=== PATIENT | male | born 1990 | race Caucasian/White ===

== ENCOUNTER 2018-05-25 09:01 | Emergency (ER) | payer SELFPAY ==
--- NOTE | 2018-05-25 09:30 | EDM.PDOC ---
ED HPI GENERAL MEDICAL PROBLEM - General Chief Complaint: Upper Extremity Injury/Pain Stated Complaint: POSSIBLE DISLOCATED HIS RT SHOULDER Time Seen by Provider: 05/25/18 09:20 - History of Present Illness INITIAL COMMENTS - FREE TEXT/NARRATIVE: HISTORY AND PHYSICAL: History of present illness: The patient is a healthy 27-year-old male who is a history of her right shoulder dislocation in 2013 which was reduced here in the emergency department and he followed up with a ortho clinic and presents with complaints of right shoulder pain and possible dislocation that occurred last evening when he was punching a punching bag at a bar. The patient says he felt the pain but thinks it might have gotten back into place as the pain is not severe today. He still feels like he has decreased range of motion and wanted to get it checked out. He has no other injuries or complaints and no systemic complaints. He has no neurovascular changes in his right upper extremity and no distal bony pain or weakness. Review of systems: As per history of present illness and below otherwise all systems reviewed and negative. Past medical history: As per history of present illness and as reviewed below otherwise noncontributory. Surgical history: As per history of present illness and as reviewed below otherwise noncontributory. Social history: No reported history of drug or alcohol abuse. Family history: As per history of present illness and as reviewed below otherwise noncontributory. Physical exam: General: Well-developed well-nourished man who is nontoxic and vital signs were noted by me HEENT: Atraumatic, normocephalic, negative for conjunctival pallor or scleral icterus, mucous membranes moist, throat clear, neck supple, nontender, trachea midline. Lungs: Clear to auscultation, breath sounds equal bilaterally, chest nontender. Heart: S1S2, regular rate and rhythm no overt murmurs Abdomen: Soft, nondistended, nontender. NABS. Pelvis: Deferred Genitourinary: Deferred. Rectal: Deferred. Extremities: Atraumatic with full range of motion of all extremities with the exception of the right shoulder. The patient limits range of motion due to discomfort and concern but I'm able to passively range of motion and there is no clinical dislocation. There are no palpable bony deformities of the clavicle humerus elbow forearm wrist or hand on the right. Neurovascular is intact. The legs are, negative for cords or calf pain. Neurovascular unremarkable. Neuro: Awake, alert, oriented. Cranial nerves II through XII unremarkable. Cerebellum unremarkable. Motor and sensory unremarkable throughout. Exam nonfocal. Diagnostics: Right shoulder x-ray Therapeutics: Sling Impression: Right shoulder injury; possible right shoulder dislocation with spontaneous reduction Definitive disposition and diagnosis as appropriate pending reevaluation and review of above. - Related Data Allergies Allergy/AdvReac Type Severity Reaction Status Date / Time No Known Allergies Allergy Verified 05/25/18 09:29 Home Meds: Home Meds . [No Known Home Meds] 09/06/14 [History] Review of Systems - Review of Systems Review Of Systems: ROS reveals no pertinent complaints other than HPI. ED EXAM, GENERAL - Physical Exam Exam: See Below (See dictation) Course - Vital Signs Last Recorded V/S: Last Vital Signs Temp 36.1 C 05/25/18 09:23 Pulse 104 H 05/25/18 09:23 Resp 20 05/25/18 09:23 BP 150/86 H 05/25/18 09:23 Pulse Ox 96 05/25/18 09:23 - Orders/Labs/Meds Orders: Active Orders 24 hr Category Date Time Status DME for Discharge [COMM] Stat Oth 05/25/18 09:27 Ordered Departure - Departure Time of Disposition: 09:54 Disposition: Home, Self-Care 01 Condition: Good Clinical Impression: Right shoulder injury - Discharge Information Instructions: Shoulder Pain Referrals: PCP,None [Primary Care Provider] - Forms: ED Department Discharge Additional Instructions: The following information is given to patients seen in the emergency department who are being discharged to home. This information is to outline your options for follow-up care. We provide all patients seen in our emergency department with a follow-up referral. The need for follow-up, as well as the timing and circumstances, are variable depending upon the specifics of your emergency department visit. If you don't have a primary care physician on staff, we will provide you with a referral. We always advise you to contact your personal physician following an emergency department visit to inform them of the circumstance of the visit and for follow-up with them and/or the need for any referrals to a consulting specialist. The emergency department will also refer you to a specialist when appropriate. This referral assures that you have the opportunity for followup care with a specialist. All of these measure are taken in an effort to provide you with optimal care, which includes your followup. Under all circumstances we always encourage you to contact your private physician who remains a resource for coordinating your care. When calling for followup care, please make the office aware that this follow-up is from your recent emergency room visit. If for any reason you are refused follow-up, please contact the [facility] emergency department at and ask to speak to the emergency department charge nurse. [facility]--Orthopedic clinic Professional Building [address] [place] [phone] Ice to area and use [id number] ibuprofen/Motrin for pain. Wear sling until you're followed up in the orthopedics clinic. Please do not do any excessive activity or overhead activity as this may re-dislocate your shoulder. Return to ER as needed and as discussed - My Orders Last 24 Hours: My Active Orders 05/25/18 09:27 DME for Discharge [COMM] Stat - Assessment/Plan Last 24 Hours: My Active Orders 05/25/18 09:27 DME for Discharge [COMM] Stat
--- NOTE | 2018-05-25 09:50 | CR ---
EXAMINATION: Right shoulder HISTORY: Pain COMPARISON: 09/07/2014 TECHNIQUE: 3 views FINDINGS/IMPRESSION: There is no acute osseous abnormality, dislocation, or fracture. Bone mineraliza tion and joint spaces are preserved.
== END 2018-05-25 10:25 | disposition home or self-care (01) ==
LOC: MW.ED 09:01
DX: S49.91XA Unspecified injury of right shoulder and upper arm, initial encounter (principal); X50.0XXA Overexertion from strenuous movement or load, initial encounter
CPT/HCPCS: 73030-26-RT; 73030-RT; 99283

== ENCOUNTER 2023-01-25 23:23 | Emergency (ER) | payer SELFPAY ==
[2023-01-25] MEDS ORDERED: Sodium Chloride 0.9% 2.5 ML Syringe FLUSH PRN (23:28)
[2023-01-25] MEDS ORDERED: Sodium Chloride 0.9% 10 ML Syringe FLUSH PRN (23:28)
[2023-01-26 00:02] LABS: BLOOD UREA NITROGEN,BUN 4 mg/dL (7.0-18.0); CARBON DIOXIDE,CO2 24.2 mmol/L (21.0-32.0); CHLORIDE,CL 109 mmol/L (98-107); ESTIMATED GFR 90 mL/min (>60); GLUCOSE RANDOM 200 mg/dL (74-106); POTASSIUM,K 3.2 mmol/L (3.5-5.1); SODIUM,NA 146 mmol/L (136-148)
== END 2023-01-26 04:09 | disposition home or self-care (01) ==
LOC: MW.ED 23:23
DX: F10.929 Alcohol use, unspecified with intoxication, unspecified (principal); S09.90XA Unspecified injury of head, initial encounter; Y90.8 Blood alcohol level of 240 mg/100 ml or more; W08.XXXA Fall from other furniture, initial encounter; Y92.89 Other specified places as the place of occurrence of the external cause
CPT/HCPCS: 36415; 70450; 80053; 80307; 83735; 84484; 85025; 93005; 99285; J3490

== ENCOUNTER 2024-04-17 08:51 | Emergency (ER) | payer SELFPAY | END 2024-04-17 08:58 | disposition left against medical advice (07) | LOC: MW.ED 08:51 | DX: Z53.21 Procedure and treatment not carried out due to patient leaving prior to being seen by health care provider (principal) ==

== ENCOUNTER 2024-11-14 13:22 | Emergency (ER) | payer SELFPAY ==
[2024-11-14 13:46] LABS: BASOPHILS ABSOLUTE AUTO 0.01 K/uL (0.00-0.20); BASOPHILS PERCENT AUTO 0.2 % (0.0-1.0); EOSINOPHILS ABSOLUTE AUTO 0.13 K/uL (0.00-0.45); HEMATOCRIT 47.2 % (42.0-52.0); HEMOGLOBIN 16.9 g/dL (14.0-18.0); IMMATURE GRAN ABSOLUTE AUTO 0.01 K/uL (0.00-0.05); IMMATURE GRAN PERCENT AUTO 0.2 % (0.0-0.4); LYMPHOCYTES ABSOLUTE AUTO 1.57 K/uL (1.00-4.80); LYMPHOCYTES PERCENT AUTO 24.5 % (24.0-44.0); MEAN CORPUSCULAR HEMOGLOBIN 30.5 pg (28.0-32.0); MEAN CORPUSCULAR HGB CONC 35.8 g/dL (32.0-36.0); MEAN CORPUSCULAR VOLUME 85.2 fL (83.0-99.0); MEAN PLATELET VOLUME 9.3 fL (9.4-12.4); MONOCYTES ABSOLUTE AUTO 0.29 K/uL (0.00-0.80); MONOCYTES PERCENT AUTO 4.5 % (0.0-8.0); NEUTROPHILS ABSOLUTE AUTO 4.39 K/uL (1.80-7.70); NEUTROPHILS PERCENT AUTO 68.6 % (41.0-71.0); PLATELET COUNT,PLT 219 K/uL (150-400); RED BLOOD CELL COUNT 5.54 M/uL (4.52-5.90)
[2024-11-14 14:17] LABS: A/G RATIO 1.3 (0.9-1.6); BILIRUBIN TOTAL 1.8 mg/dL (0.2-1.0); CALCIUM 9.1 mg/dL (8.5-10.1); CARBON DIOXIDE,CO2 29.3 mmol/L (21.0-32.0); CREATININE 1.5 mg/dL (0.8-1.3); EST CRCL DRUG DOSING (CG) 65.87 mL/min; POTASSIUM,K 4.5 mmol/L (3.5-5.1); PROTEIN TOTAL,TP 7.2 g/dL (6.4-8.2)
== END 2024-11-14 16:47 | disposition home or self-care (01) ==
LOC: MW.ED 13:22
DX: R07.9 Chest pain, unspecified (principal); R55 Syncope and collapse; N17.9 Acute kidney failure, unspecified; Z75.8 Other problems related to medical facilities and other health care; I10 Essential (primary) hypertension
CPT/HCPCS: 36415; 71046; 71046-26; 80053; 84484; 85025; 93005; 99285

== ENCOUNTER 2024-12-13 10:02 | Emergency (ER) | payer BC ==
[2024-12-13] MEDS: Benzocaine 20% Topical Spray UD MUCMEM ONE (10:32)
[2024-12-13] MEDS: Lidocaine 2% Viscous Solution 15 ML UD PO ONE (10:32)
== END 2024-12-13 10:38 | disposition home or self-care (01) ==
LOC: MW.ED 10:02
DX: Z76.0 Encounter for issue of repeat prescription (principal); K08.89 Other specified disorders of teeth and supporting structures; I10 Essential (primary) hypertension; F17.210 Nicotine dependence, cigarettes, uncomplicated; Z79.899 Other long term (current) drug therapy
CPT/HCPCS: 99282; A9270; 99283

== ENCOUNTER 2025-01-25 11:09 | Emergency (ER) | payer BC ==
[2025-01-25 11:34] LABS: BASOPHILS ABSOLUTE AUTO 0.03 K/uL (0.00-0.20); BASOPHILS PERCENT AUTO 0.5 % (0.0-1.0); EOSINOPHILS ABSOLUTE AUTO 0.17 K/uL (0.00-0.45); EOSINOPHILS PERCENT AUTO 2.6 % (0.0-6.0); HEMATOCRIT 49.1 % (42.0-52.0); IMMATURE GRAN ABSOLUTE AUTO 0.01 K/uL (0.00-0.05); IMMATURE GRAN PERCENT AUTO 0.2 % (0.0-0.4); LYMPHOCYTES ABSOLUTE AUTO 2.09 K/uL (1.00-4.80); LYMPHOCYTES PERCENT AUTO 31.7 % (24.0-44.0); MEAN CORPUSCULAR HEMOGLOBIN 30.3 pg (28.0-32.0); MEAN CORPUSCULAR HGB CONC 36.7 g/dL (32.0-36.0); MEAN CORPUSCULAR VOLUME 82.5 fL (83.0-99.0); MEAN PLATELET VOLUME 9.6 fL (9.4-12.4); MONOCYTES ABSOLUTE AUTO 0.26 K/uL (0.00-0.80); MONOCYTES PERCENT AUTO 3.9 % (0.0-8.0); NEUTROPHILS ABSOLUTE AUTO 4.04 K/uL (1.80-7.70); NEUTROPHILS PERCENT AUTO 61.1 % (41.0-71.0); PLATELET COUNT,PLT 259 K/uL (150-400); RED BLOOD CELL COUNT 5.95 M/uL (4.52-5.90)
[2025-01-25 12:01] LABS: A/G RATIO 1.4 (0.9-1.6); ALBUMIN 4.5 g/dL (3.4-5.0); BILIRUBIN TOTAL 1.9 mg/dL (0.2-1.0); CALCIUM 9.3 mg/dL (8.5-10.1); CARBON DIOXIDE,CO2 27.5 mmol/L (21.0-32.0); CREATININE 1.2 mg/dL (0.8-1.3); EST CRCL DRUG DOSING (CG) 82.33 mL/min; POTASSIUM,K 4.4 mmol/L (3.5-5.1); PROTEIN TOTAL,TP 7.8 g/dL (6.4-8.2)
[2025-01-25 12:40] LABS: MAGNESIUM 2.1 mg/dL (1.8-2.4); TSH ULTRASENSITIVE 0.75 uIU/mL (0.36-3.74)
== END 2025-01-25 14:29 | disposition home or self-care (01) ==
LOC: MW.ED 11:09
DX: I10 Essential (primary) hypertension (principal); T38.7X5A Adverse effect of androgens and anabolic congeners, initial encounter; Z75.8 Other problems related to medical facilities and other health care; Z79.899 Other long term (current) drug therapy
CPT/HCPCS: 36415; 80053; 83690; 83735; 84443; 85025; 85379; 87428-QW; 93005; 93010; 99283; 99285